=== PATIENT | female | born 1950 | race Caucasian/White ===

== ENCOUNTER → 2017-03-31 | Outpatient (CLI) | payer MEDICARE ==
[~2017-03-31] MED LIST: ADVAIR 100-501 EACH INH; ADVAIR NASAL; ALBUTEROL2.5 MG/0.1 INH; ALEVE220 M1 PO; BACTRIM DS TAB1 EACH PO; CALCIUM 500 +1 EAC5 PO; CALCIUM CITRAT250 MG PO; CALCIUM WITH VIT D PO; CELEBREX 200 M200 M1 PO; CIPRO250 M1 PO; CLONIDINE0.1 PO; COLACE100 MG PO; CYMBALTA30 MG PO; CYMBALTA60 MG PO; ENOXAPARIN30 MG/0.3 SUBQ; FLEXERIL PO; FLOMAX0.4 MG PO; FLONASE 0.05%50 MCG NASAL; HYDROCODON-ACE1 EAC5 PO; HYDROCODONE-AP1 EAC6 PO; HYDROXYCHLOROQ200 M1 PO; IRON PO; KEFLEX500 MG PO; MULTIVITAMIN; MULTIVITAMINS PO; MULTIVITAMINS1 EAC7 PO; NEURONTIN 300300 M1 PO; NEURONTIN600 MG PO; NORCO 10-325 T1 EAC1 PO; NORCO 10-325 T1 EACH PO; NORCO 5-325 TA1 EACH PO; NORCO 7.5-3251 EACH PO; OXYCODONE HCL15 MG PO; PERCOCET 5-3251 EACH PO; PERCOCET 7.5-31 EACH PO; ROXICODONE15 M1 PO; TAMSULOSIN HCL0.4 MG PO; TIZANIDINE HCL4 MG PO; TONIC; TUMERIC; VIT B 12 PO; VITAMIN B-1250 MC2 PO; VITAMIN D3400 UNIT PO; XANAX 0.5 MG0.5 M1 PO; ZANAFLEX4 M1 PO; ZITHROMAX500 MG PO; iron PO; vitamin b12 PO
--- NOTE | 2017-04-02 08:15 | PAINCON ---
[facility] [address] [place] [address] PAIN MANAGEMENT CONSULTATION Name: SIGIFREDO PERAZA Room: [facility] Kaushal#: [id number] Admission: 03/31/17 Attend Phys: Andrew Calabrese Discharge: Date of : 46 Report #: [id number] THIS REPORT FOR: //name// CC: Xochitl Conde The patient is a very pleasant 67-year-old female typically treated for lumbar radiculopathy, axial back pain, SI mediated pain requiring high risk complex medication management. She has a spinal cord stimulator in place for lumbar radicular pain. Last visit 01/27/2017, somewhat tragic visit, the patient's daughter had just passed. She returns to pain clinic today, she is doing reasonably well. 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 She notes the gabapentin and tizanidine caused daytime sedation, hence she tends to take her gabapentin 600 mg 2 tablets at bedtime and tizanidine 1-2 tablets at bedtime. She uses hydrocodone 5/325 one tablet 3-4 times a day, limit 100 tablets for 30 days, clonidine 0.1 at bedtime and Celebrex 200 mg b.i.d. We reviewed the fact that opiate medications are being used to provide analgesia adequate to support activities of daily living, not attempting to achieve a specific pain score on the 0-10 Visual Analog Scale. The current opiate medications are providing sufficient analgesia to allow the patient to participate in activities of daily living. The patient is not exhibiting any aberrant behavior suggestive of drug diversion. The patient is not having any adverse reactions to medications. The patient is not suffering from daytime somnolence or mental acuity changes. The patient is managing opiate-induced constipation with appropriate mluq-sgj-mysijnx agents and dietary considerations. The patient was counseled on concern for caution with operating a motor vehicle while using opiate medications. A physical exam was performed and the patient's functional status was evaluated. All patients with back pain were advised against the bed rest greater than 4 days and were advised to return to normal activities. Pain score assessment was noted and the treatment plan was reviewed with the patient. All current medications, both prescribed and OTC were reviewed and reconciled on the electronic medical record. Tobacco screening was accomplished and smoking cessation was advised when indicated. BMI was noted and diet/exercise modification was recommended for all patients following outside normal parameters. I reviewed with the patient today their responsibilities to safeguard prescription medications, reviewed their responsibility to utilize medications only as prescribed by the physician. They are to seek and receive pain medications only from 1 physician group ( [facility]). They are to use 1 pharmacy and keep the clinic informed if they change pharmacies. Their responsibilities include making followup visits in a timely fashion and to avoid abrupt discontinuation of medication usage. Their responsibilities further include bringing their medications (bott[place] [address] PAIN MANAGEMENT CONSULTATION Name: SIGIFREDO PERAZA Room: [facility] DHARMESH Easley#: [id number] Admission: 03/31/17 Attend Phys: Andrew Calabrese Discharge: Date of : 46 Report #: [id number] pills) to the visit for possible confirmation of pill counts and the patient understands it is their responsibility to submit to random drug screens to ensure both that the medications prescribed are present, and that no other controlled substances are present. All prescriptions provided today were generated electronically. The patient generally has been doing reasonably well with current medication, in fact rates her pain 0 on a VAS at present; however, she does note she has been having some increasing problems with paresthesia in bilateral upper extremities affecting the long, ring, and fifth finger. PHYSICAL EXAMINATION: Today shows a pleasant 67-year-old female, BMI is 23.5 kg/m2. Blood pressure is 135/53, pulse 61, and respirations are 18. Alert and oriented to person, place and time, judged to be a reasonable historian. Cervical range of motion is modestly limited, modestly positive Lhermitte's. Hand grasp is symmetric. Tinel's is negative. Subjective paresthesia in the C7 and 8 distribution. Rises from chair using armrest. Gait is tandem. Lower extremity strength preserved. Diffuse axial back pain. No discrete trigger points noted. ASSESSMENT: Symptomatic lumbar radiculopathy, axial back pain requiring high risk complex medication management by history, new diagnosis of cervical radicular symptoms. RECOMMENDATION: We will seek authorization for cervical epidural injection under fluoroscopy today. Given the patient has a spinal cord stimulator in place, MRI will be contraindicated. If one cervical epidural injection does not the patient's cervical radicular symptoms, I will move forward with a CT myelogram. Discharged in good and stable condition, prescriptions for 2 months given, we will see the patient back in 2 weeks for cervical epidural injection under fluoroscopy unless symptoms resolve. <ELECTRONICALLY SIGNED> By: Conor Conde DO 04/02/17 0815 1325 [id number] Conde DO /nt
== END ==
LOC: M.PC 03-17 01:30
DX: M54.16 Radiculopathy, lumbar region (principal); M54.12 Radiculopathy, cervical region; M54.9 Dorsalgia, unspecified; M53.3 Sacrococcygeal disorders, not elsewhere classified; Z79.899 Other long term (current) drug therapy

== ENCOUNTER → 2017-04-14 | Outpatient (CLI) | payer MEDICARE ==
--- NOTE | 2017-04-16 09:33 | PAINCON ---
[address] [address] PAIN MANAGEMENT CONSULTATION Name: SIGIFREDO PERAZA Room: [facility] Kaushal#: [id number] Admission: 04/14/17 Attend Phys: Andrew Calabrese Discharge: Date of : 46 Report #: [id number] THIS REPORT FOR: //name// CC: Xochitl Conde The patient is a very pleasant 67-year-old female, prior seen in the pain clinic for both lumbar and cervical radicular symptoms. She was last seen in pain clinic on 03/31/2017. We diagnosed symptomatic cervical radiculopathy relatively acute onset and sought authorization for epidural injection under fluoroscopy. This was accomplished. She returns to pain clinic today noting pain continues unabated to neck, right shoulder and arm with paresthesia ongoing in the right arm. We elected to proceed with epidural injection under fluoroscopy today. Continue medication unchanged. Follow up in 4 weeks for reevaluation. ASSESSMENT: Symptomatic cervical radiculopathy. PROCEDURE: Cervical epidural injection under fluoroscopy. PROCEDURE NOTE: After written and informed consent was obtained including risk of dural puncture, spinal cord trauma, paralysis and increased pain, the patient was taken to the fluoroscopy suite and placed in the prone position, with appropriate abdominal bolstering, neck was flexed, palms under the thighs. Skin was prepped with ChloraPrep. Sterile draping was applied. Skin wheal with 1% Xylocaine was raised. A 22-gauge 3-1/2 inch epidural Tuohy needle was placed via a midline approach at the C7-T1 interspace, advanced under biplanar fluoroscopy using continuous loss of resistance. With appropriate loss of resistance at the expected depth on lateral view, the glass loss of resistance syringe was disconnected. A low volume extension tubing was connected to the needle and a 5 mL syringe. Negative aspiration for cerebrospinal fluid or blood was noted. A 1 mL of Omnipaque was injected which showed spread within the epidural space on biplanar fluoroscopy. This was followed with 80 mg of triamcinolone plus 1 mL of 1.5% preservative Xylocaine. Needle was withdrawn to the interspinous ligament, 0.5 mL of Xylocaine was used to flush the needle. The needle was then completely withdrawn. The area was cleansed. Band-Aid was applied. The patient was allowed to move off the procedure table and ambulated to the recovery room, monitored for an appropriate period of time, discharged in good and stable condition. <ELECTRONICALLY SIGNED> By: Conor Conde DO 04/16/17 0933 1321 [id number] Conde DO /riri
== END | disposition home or self-care (01) ==
LOC: M.PC 01:30
DX: M54.12 Radiculopathy, cervical region (principal)

== ENCOUNTER → 2017-05-26 | Outpatient (CLI) | payer MEDICARE ==
--- NOTE | 2017-05-27 10:21 | PAINCON ---
[address] [address] PAIN MANAGEMENT CONSULTATION Name: SIGIFREDO PERAZA Room: [facility] Kaushal#: [id number] Admission: 05/26/17 Attend Phys: Andrew Calabrese Discharge: Date of : 46 Report #: [id number] THIS REPORT FOR: //name// CC: Xochitl Conde DATE OF SERVICE: 05/26/2017 The patient is a 67-year-old female being treated for lumbar radiculopathy, component of cervical radiculopathy. Last seen in pain clinic 04/14/2017. The patient was given a single epidural injection at that time. She returns to pain clinic today noting the injection afforded significant improvement in baseline pain. She has had hydrocodone 5/325 sample for breakthrough pain. She does continue with Celebrex 200 mg 1 a day, gabapentin 600 mg typically 2 at night, but she notes if she takes a little more frequently, pain does improve overall. She has both cervical and lumbar radicular symptoms, though again, the cervical radicular symptoms seemed to be improved. We reviewed the fact that opiate medications are being used to provide analgesia adequate to support activities of daily living, not attempting to achieve a specific pain score on the 0-10 Visual Analog Scale. The current opiate medications are providing sufficient analgesia to allow the patient to participate in activities of daily living. The patient is not exhibiting any aberrant behavior suggestive of drug diversion. The patient is not having any adverse reactions to medications. The patient is not suffering from daytime somnolence or mental acuity changes. The patient is managing opiate-induced constipation with appropriate lxnz-gdr-brbuwey agents and dietary considerations. The patient was counseled on concern for caution with operating a motor vehicle while using opiate medications. A physical exam was performed and the patient's functional status was evaluated. All patients with back pain were advised against the bed rest greater than 4 days and were advised to return to normal activities. Pain score assessment was noted and the treatment plan was reviewed with the patient. All current medications, both prescribed and OTC were reviewed and reconciled on the electronic medical record. Tobacco screening was accomplished and smoking cessation was advised when indicated. BMI was noted and diet/exercise modification was recommended for all patients following outside normal parameters. I reviewed with the patient today their responsibilities to safeguard prescription medications, reviewed their responsibility to utilize medications only as prescribed by the physician. They are to seek and receive pain medications only from 1 physician group ( [facility]). They are to use 1 pharmacy and keep the clinic informed if [place] [address] PAIN MANAGEMENT CONSULTATION Name: SIGIFREDO PERAZA Room: [facility] Kaushal#: [id number] Admission: 05/26/17 Attend Phys: Andrew Calabrese Discharge: Date of : 46 Report #: [id number] responsibilities include making followup visits in a timely fashion and to avoid abrupt discontinuation of medication usage. Their responsibilities further include bringing their medications (bottles from the pharmacy with residual pills) to the visit for possible confirmation of pill counts and the patient understands it is their responsibility to submit to random drug screens to ensure both that the medications prescribed are present, and that no other controlled substances are present. All prescriptions provided today were generated electronically. PHYSICAL EXAMINATION: Shows 67-year-old female, 4-foot 11-inch, 116 pounds, BMI is 19 kilograms per meter squared. Blood pressure 128/53, pulse 51, respirations 16. Subjective pain score is fairly nominal 2/10 today. Near 100% relief following cervical epidural injection 03/31/2017. No pain in her neck. She does have pain in the low back. She notes pain is exacerbated with ambulation and activity. Physical exam notes modestly antalgic gait. Cervical range of motion is full. Upper extremity strength is preserved. Lumbar flexion is limited. Diffuse tenderness across the low back, no discrete trigger points noted. ASSESSMENT: 1. Symptomatic lumbar radiculopathy, history of cervical radiculopathy, chronic complex medication management. 2. Component of acute sinus infection, she is afebrile but does have tenderness over the frontal sinuses. No tenderness over the maxillary sinuses. Positive cervical adenopathy. RECOMMENDATION: 1. Continue hydrocodone 5/325, however, we will write for a 10/325 tablet with directions to take a half a tablet 2-3 times a day, limit 50 tablets for 30 days. This will expose the patient to less acetaminophen and she believes that her cost will be about half compared to 100 of the 5 mg tablets. 2. I have taken the liberty of renewing her prescription. We will see the patient back in 2 months for reevaluation. I told her I will be happy to repeat cervical epidural injection if indicated clinically; however, given the good relief she has had at present, I am hopeful that she will not require further intervention. She certainly does not warrant it at present. Discharged in good and stable condition. Follow up in 2 months for reevaluation. <ELECTRONICALLY SIGNED> By: Conor Conde DO 05/27/17 1021 1240 [id number] Conde DO /nt
== END ==
LOC: M.PC 03:38
DX: M54.16 Radiculopathy, lumbar region (principal); M54.12 Radiculopathy, cervical region; J01.90 Acute sinusitis, unspecified; Z79.899 Other long term (current) drug therapy

== ENCOUNTER → 2017-07-21 | Outpatient (CLI) | payer MEDICARE ==
--- NOTE | 2017-07-22 09:37 | PAINCON ---
[address] [address] PAIN MANAGEMENT CONSULTATION Name: SIGIFREDO PERAZA [id number] Admission: 07/21/17 Attend Phys: Andrew Calabrese Discharge: Date of : 46 Report #: [id number] THIS REPORT FOR: //name// CC: Xochitl Conde DATE OF SERVICE: 07/21/2017 HISTORY OF PRESENT ILLNESS: The patient is a 67-year-old female being treated for lumbar radiculopathy, history of cervical radiculopathy. Last seen on 05/26/2017. Continued hydrocodone 5/325, changed prescription to a hydrocodone 10/325 tablets with directions to take one-half tablet 4 times a day, limit 60 tablets for 30 days. This was done for economic reasons. We talked about an epidural injection if indicated clinically at this visit. She returns to the pain clinic today. She has been having significant pain in the last 4 days. States she has a "cracked tooth" right upper side. She has a right hemifacial pain. Does have a little pharyngeal drainage and subjective stuffiness in the right ear. Does have cervical adenopathy right greater than left. She is tender over both the frontal and maxillary sinuses on the right. Cervical range of motion is modestly limited. She is afebrile, temperature is 98.2, blood pressure 143/107, pulse 50, respirations 16. BMI is 23.3 kilograms per meter squared. Upper extremity strength is diminished, but symmetric. ASSESSMENT: Symptomatic cervical radiculopathy, history of lumbar radiculopathy, chronic pain requiring complex medication management in a patient with an acute dental abscess versus possible sinus infection. RECOMMENDATIONS: I had a long discussion with the patient today about therapeutic options. She tells me she took a pain tablet that had been leftover from her daughter (tragically her daughter from cancer). She took hydromorphone 4 mg tablet. I significantly chastised the patient regarding her responsibility to not take opiates that are not prescribed. I pointed out that 4 mg hydromorphone in opiate naive patient is an extremely high level of narcotic, which could lead to overdose. It is not only dangerous, it is illegal. The patient ultimately understood my consternation. I told her we will continue hydrocodone 5 mg 4 times a day and will follow up in 4 weeks. Unbeknownst to the patient we will get a random drug screen at that time. Given hemifacial pain, frontal sinus tenderness and cervical adenopathy, I did prescribe azithromycin 6 tablets 2 today with directions to take 1 in the subsequent 4 days. While trying to quiet some of the acute right hemifacial pain symptoms, I strongly recommend she follow up with her dentist. Discharged in good and stable condition after moderately prolonged visit. She was seen from 11:15-11:40, greater than 50% of the time [place] [address] PAIN MANAGEMENT CONSULTATION Name: SIGIFREDO PERAZA Room: [facility] Easley#: [id number] Admission: 07/21/17 Attend Phys: Andrew Calabrese Discharge: Date of : 46 Report #: [id number] issues, concern about the use of non-prescribed opiate analgesics. Follow up in 4 weeks for reevaluation, may consider epidural injection if indicated at that time and if sinus/dental abscess infection is resolved. <ELECTRONICALLY SIGNED> By: Conor Conde DO 07/22/17 0937 1446 [id number] Conde DO /nt
== END ==
LOC: M.PC 04:39
DX: M54.12 Radiculopathy, cervical region (principal); G89.29 Other chronic pain; M54.16 Radiculopathy, lumbar region

== ENCOUNTER 2017-07-24 12:38 | Inpatient (IN) | payer MEDICARE ==
[~2017-07-24] VITALS: Ht 149.9 cm; Wt 50.5 kg
[~2017-07-24 12:38] MED LIST changes: -FLOMAX0.4 MG PO; -NORCO 10-325 T1 EAC1 PO
[2017-07-24 12:46] VITALS: BP 114/37
[2017-07-24 13:06] LABS: URINE BILIRUBIN NEGATIVE (Negative); URINE BLOOD NEGATIVE (Negative); URINE CLARITY CLEAR; URINE COLOR YELLOW; URINE GLUCOSE-RANDOM NEGATIVE (Negative); URINE KETONES 1+ (Negative); URINE LEUKOCYTES-REFLEX NEGATIVE (Negative); URINE NITRITE-REFLEX NEGATIVE (Negative); URINE PROTEIN NEGATIVE (Negative); URINE SPECIFIC GRAVITY >= 1.030 (1.005-1.030); URINE UROBILINOGEN 0.2 E.U./dl (0.2-1.0)
[2017-07-24 13:23] LABS: ABSOLUTE EOSINOPHILS 0.1 thou/uL (0.0-0.7); ABSOLUTE LYMPHOCYTES 1.3 thou/uL (0.8-5.3); ABSOLUTE MONOCYTES 1.3 thou/uL (0.0-1.2); ABSOLUTE NEUTROPHILS 6.9 thou/uL (1.6-8.1); BASOPHILS 0.4 %; EOSINOPHILS 0.8 %; HEMATOCRIT 35.7 % (37.0-47.0); HEMOGLOBIN 11.7 gm/dL (12.0-15.0); LYMPHOCYTES 13.5 %; MCH 30.5 pg (26.0-34.0); MCHC 32.9 g/dL (28.0-37.0); MONOCYTES 13.1 %; MPV 10.4 fl. (7.2-11.1); NUCLEATED RBCS 0 /100WBC; PLATELET COUNT* 184 thou/uL (150-400); POLYS 72.2 %; RBC 3.84 mil/uL (4.20-5.00); WBC 9.6 thou/uL (4.0-11.0)
[2017-07-24 13:46] LABS: CALCIUM 9.6 mg/dL (8.5-10.1); CREATININE 0.8 mg/dL (0.6-1.3); POTASSIUM 3.6 mmol/L (3.5-5.1)
[2017-07-24 13:51] LABS: ALBUMIN 3.7 g/dL (3.4-5.0); TOTAL BILIRUBIN 0.7 mg/dL (<0.1-1.0); TOTAL PROTEIN 6.8 g/dL (6.4-8.2)
[2017-07-24 17:55] VITALS: BP 113/53
[2017-07-24 17:57] VITALS: BP 128/59
--- NOTE | 2017-07-24 19:28 | NUR ---
PATIENT ARRIVED FROM ER THIS EVENING. PATIENT SETTLED TO ROOM. HISTORY, ASSESSMENT AND VITALS COMPLETED AND DOCUMENTED. PATIENT HAS COMPLAINTS OF LEFT FLANK PAIN, TREATED ADEQUATELY WITH KETORALAC, ORDERS RECEIVED FROM DR JONES FOR THIS. PATIENT IS UP AD TEENA IN ROOM. STRAINING URINE. PATIENT DENIES ANY NEEDS AT THIS TIME. CALL LIGHT WITHIN REACH. WILL CONTINUE TO MONITOR.
[2017-07-24 19:45] VITALS: BP 113/63
[2017-07-24] MEDS ORDERED: NEURONTIN600 MG PO (20:07)
[2017-07-24] MEDS ORDERED: HYDROCODONE-AP1 EAC6 PO (20:08)
[2017-07-25 00:10] VITALS: BP 73/32
[2017-07-25 01:35] VITALS: BP 112/58
[2017-07-25 03:45] LABS: MCH 30.7 pg (26.0-34.0); MCHC 33.5 g/dL (28.0-37.0); MCV 91.5 fL (80.0-100.0); MPV 10.9 fl. (7.2-11.1); RBC 3.6 mil/uL (4.20-5.00); RDW-CV 13.1 % (10.5-14.5); WBC 7.2 thou/uL (4.0-11.0)
[2017-07-25 03:46] LABS: CALCIUM 8.4 mg/dL (8.5-10.1); CREATININE 0.8 mg/dL (0.6-1.3); MAGNESIUM 1.8 mg/dL (1.8-2.4); POTASSIUM 4.5 mmol/L (3.5-5.1)
--- NOTE | 2017-07-25 05:27 | NUR ---
PATIENT ALERT AND ORIENTED. PHYSICIAN CONTACTED DUE TO LOW BLOOD PRESSURE. ORDERS RECEIVED, RESULTING IN IMPROVED BLOOD PRESSURE. FLUIDS INFUSING PER ORDER. UP INDEPENDENTLY. NPO. STRAINING ALL URINE. PAIN CONTROLLED WITH PO MEDICATION. HOURLY ROUNDS. NURSING WILL CONTINUE TO MONITOR.
[2017-07-25 07:47] VITALS: BP 123/54
[2017-07-25 12:31] VITALS: BP 123/54
[2017-07-25] MEDS ORDERED: FLOMAX0.4 MG PO (12:42)
--- NOTE | 2017-07-25 13:00 | NUR ---
ASSUMED CARE OF PATIENT AFTER MORNING REPORT. ALERT AND ORIENTED X4. ASSESSMENT COMPLETED AND CHARTED. VSS ON ROOM AIR. PATIENT HAD NO COMPLAINTS OF PAIN, NAUSEA OR SOA THIS SHIFT. FLUIDS INFUSED ORDERED. URINE STRAINED ORDERED, SMALL STONELIKE OBJECT NOTED IN STRAINER, POSSIBLY PASSING OF A STONE. PATIENTS DIET PROGRESSED TO REGULAR BY UROLOGY, CLEARED FOR DISCHARGE WITH FOLLOW UP PLANNED IN A FEW WEEKS. PATIENT DISCHARGED AT 1255, ALL PERSONAL BELONGINGS, PRESCRIPTIONS AND DISCHARGE INFORMATION SENT WITH PATIENT UPON DISCHARGE.
[2017-08-18] MEDS ORDERED: NORCO 10-325 T1 EACH PO (11:15)
[2017-08-18] MEDS ORDERED: TIZANIDINE HCL4 MG PO (11:15)
[2017-08-18] MEDS ORDERED: NORCO 10-325 T1 EAC1 PO (11:15)
[2017-10-26] MEDS ORDERED: CELEBREX 200 M200 M1 PO (08:55)
[2017-10-26] MEDS ORDERED: NORCO 10-325 T1 EACH PO (08:55)
[2017-10-26] MEDS ORDERED: CLONIDINE0.1 PO (08:55)
[2017-10-26] MEDS ORDERED: ZITHROMAX500 MG PO (08:55)
[2017-10-26] MEDS ORDERED: TIZANIDINE HCL4 MG PO (08:55)
[2017-10-26] MEDS ORDERED: NORCO 10-325 T1 EAC1 PO (08:55)
[2017-12-21] MEDS ORDERED: NORCO 10-325 T1 EACH PO (08:24)
[2017-12-21] MEDS ORDERED: CLONIDINE0.1 PO (08:24)
[2017-12-21] MEDS ORDERED: CELEBREX 200 M200 M1 PO (08:24)
[2017-12-21] MEDS ORDERED: NORCO 10-325 T1 EAC1 PO (08:24)
[2017-12-21] MEDS ORDERED: ZITHROMAX500 MG PO (08:24)
[2017-12-21] MEDS ORDERED: TIZANIDINE HCL4 MG PO (08:24)
[2018-02-08] MEDS ORDERED: CELEBREX 200 M200 M1 PO ×2 (10:20→10:38)
[2018-02-08] MEDS ORDERED: ZITHROMAX500 MG PO (10:20)
[2018-02-08] MEDS ORDERED: CLONIDINE0.1 PO (10:20)
[2018-02-08] MEDS ORDERED: TIZANIDINE HCL4 MG PO (10:20)
[2018-02-08] MEDS ORDERED: NORCO 10-325 T1 EAC1 PO (10:20)
[2018-02-08] MEDS ORDERED: NORCO 10-325 T1 EACH PO (10:20)
[2018-02-08] MEDS ORDERED: NEURONTIN600 MG PO (10:38)
== END 2017-07-25 12:55 | disposition home health service (06) | DRG 694 ==
LOC: M.ERS 12:38 → M.ORTHSURG 16:40 → M.TBA-ER 16:40 → M.ORTHSURG 17:50
PROVIDERS: Nurse Practitioner Family; ADMIT Family Medicine
DX: N13.2 Hydronephrosis with renal and ureteral calculous obstruction (principal); J44.9 Chronic obstructive pulmonary disease, unspecified; M32.9 Systemic lupus erythematosus, unspecified; Z96.653 Presence of artificial knee joint, bilateral; M79.7 Fibromyalgia; Z79.899 Other long term (current) drug therapy; K80.50 Calculus of bile duct without cholangitis or cholecystitis without obstruction; G89.29 Other chronic pain; M54.5 Low back pain; E86.0 Dehydration; K80.70 Calculus of gallbladder and bile duct without cholecystitis without obstruction; M19.90 Unspecified osteoarthritis, unspecified site; N28.1 Cyst of kidney, acquired; Z87.442 Personal history of urinary calculi; Z90.49 Acquired absence of other specified parts of digestive tract; Z98.42 Cataract extraction status, left eye; Z98.41 Cataract extraction status, right eye; N23 Unspecified renal colic; Z87.891 Personal history of nicotine dependence

== ENCOUNTER → 2017-08-18 | Outpatient (CLI) | payer MEDICARE ==
[~2017-08-18] MED LIST changes: +FLOMAX0.4 MG PO; +NORCO 10-325 T1 EAC1 PO
--- NOTE | 2017-08-19 07:50 | PAINCON ---
[address] [address] PAIN MANAGEMENT CONSULTATION Name: SIGIFREDO PERAZA Room: [facility]#: [id number] Admission: 08/18/17 Attend Phys: Andrew Calabrese Discharge: Date of : 46 Report #: [id number] THIS REPORT FOR: //name// CC: Xochitl Conde DATE OF SERVICE: 08/18/2017 HISTORY OF PRESENT ILLNESS: The patient is a 67-year-old female, prior seen in the pain clinic for symptomatic cervical and lumbar radiculopathy. She has done well with low dose hydrocodone, 5 mg 4 times a day (/2 of [place] 10). She was in the hospital 07/24 through 07/25 for flank pain, diagnosed with renal lithiasis. Incidentally noted choledocholithiasis as well. She has had 3 bouts of renal lithiasis in the past. She was told it was due to low citric acid, she has increased her consumption of reuben and oranges with nominal efficacy. She states her back pain is actually fairly minimal at present. She rates pain a "0.5" on a 0-10 visual analog scale. PHYSICAL EXAMINATION: GENERAL: Shows pleasant 67-year-old female, 4 feet 11 inches, 110 pounds, BMI is 22.4 kilograms per meter squared. VITAL SIGNS: Blood pressure 126/56, pulse is 55, respirations of 16. MUSCULOSKELETAL: Rises from chair easily. Gait is tandem. Really, no discrete trigger points or tenderness noted in the low back. RECOMMENDATIONS: Discussion with the patient today about therapeutic options. She does take tizanidine 4 mg for spasm; she is taking up to 4 times a day as needed. Hydrocodone 10/325 1/2 tablet 4 times a day. She has taken this on a p.r.n. basis as well. Celebrex 200 mg b.i.d. and gabapentin 600 mg 2 tablets at bedtime. Continued unchanged. I have taken the liberty of writing for the tizanidine, hydrocodone today. We will have the patient to follow up simply on an as-needed basis. I did tell the patient that I will be leaving practice at the end of August. I did suggest she follow up with Dr. Xochitl Niño. She may be able to continue her low dose opiate analgesic. If not, hopefully Dr. Niño can refer her to another pain physician in her insurance network. Otherwise, we will have her follow up with Dr. Fred Tuttle at [facility]. Dr. Tuttle is taking over and over my patients, but his schedule is getting quite full and he may have difficulty seeing all of the chronic pain patients here. Today, we did repeat a random drug screen. No aberrant behavior suggestive of drug diversion, simply complying with her opiate [place] [address] PAIN MANAGEMENT CONSULTATION Name: STUSIGIFREDO Room: [facility] DHARMESH Easley#: [id number] Admission: 08/18/17 Attend Phys: Andrew Calabrese Discharge: Date of : 46 Report #: [id number] Thank you for allowing me to participate in the patient's care. <ELECTRONICALLY SIGNED> By: Conor Conde DO 08/19/17 0750 1341 1957[facility]acely Conde DO /nt
== END ==
LOC: M.PC 03:58
DX: M54.16 Radiculopathy, lumbar region (principal); M54.12 Radiculopathy, cervical region; K80.50 Calculus of bile duct without cholangitis or cholecystitis without obstruction; N20.0 Calculus of kidney

== ENCOUNTER → 2017-10-26 | Outpatient (CLI) | payer MEDICARE ==
--- NOTE | 2017-11-12 08:37 | PAINCON ---
[address] [address] PAIN MANAGEMENT CONSULTATION Name: SIGIFREDO PERAZA Room: [facility]ES[facility] Easley#: [id number] Admission: 10/26/17 Attend Phys: Taylor Tuttle MD Discharge: Date of : 46 Report #: [id number] THIS REPORT FOR: //name// CC: Xochitl Tuttle DATE OF SERVICE: 10/26/2017 CHIEF COMPLAINT: Low back and leg pain. HISTORY OF PRESENT ILLNESS: The patient is a 67-year-old female who has been followed in the pain clinic for quite a number of years by Dr. Conor Conde. This is first time seeing the patient. She has a history of low back pain and is being treated with complex medical management using opioid medications. She also has a history of symptomatic cervical radiculopathy. She is doing reasonably well on her current medical regimen of hydrocodone. She does suffer from kidney stones. The patient states that she has been taking care of her who has had a number of strokes. He is totally dependent upon her. Having to do activities of daily living as his caregiver can be somewhat difficult. She feels that with her current medications things are going reasonably well. Does note some worsening of pain and discomfort in the evening hours. She notes exacerbation of her pain with activity, walking, sitting, standing, going from a sitting to a standing position. Lifting and bending. Feels that her medications as well as use of heat can be helpful. She also has a spinal cord stimulator in place. She finds that continues to be beneficial as well. ALLERGIES: No known drug allergies. CURRENT MEDICATIONS: Calcium 250 mg, Celebrex 200 mg b.i.d., vitamin D3 400 units, clonidine 0.1 mg at bedtime, Neurontin 1200 mg at bedtime, hydrocodone 5/325 p.r.n., hydrocodone 10/325 q.i.d. as needed one-half tablet, Plaquenil, rheumatoid arthritis, multivitamins, Flomax 0.4 mg. PAST MEDICAL HISTORY: History of cervical radiculopathy and lumbar radiculopathy, stable at this juncture. IMPRESSION: 1. Lumbar radicular pain status post spinal cord stimulator. 2. Multilevel degenerative disk disease at L3-L4 and L4-L5. 3. Mild neural foraminal narrowing L4-L5. 4. Systemic lupus erythematosus, history. 5. Chronic obstructive pulmonary disease. 6. Depression. 7. Osteoarthritis, status post bilateral [place] [address] PAIN MANAGEMENT CONSULTATION Name: SIGIFREDO PERAZA Room: [facility]#: [id number] Admission: 10/26/17 Attend Phys: Taylor Tuttle MD Discharge: Date of : 46 Report #: [id number] 8. Carlito-en-Y gastric bypass. PAIN CLINIC ASSESSMENT: 1. History of osteoarthritis and rheumatoid arthritis. 2. Height 4 feet 11 inches, weight 107 pounds, BMI is 21.7. 3. Vital Signs: Blood pressure 114/79, heart rate 51, respiratory rate 16, room air saturation is 98%. 4. Pain intensity 0/10. 5. Fall history: The patient has not fallen in the last 3 months. 6. Blood thinner. The patient is not on a blood thinning medication. 7. Hypertension. The patient is not being treated for hypertension. 8. Risk assessment tool. 9. Functional assessment tool. 10. Recreational drug use. The patient denies use of recreational drugs. 11. Opioid therapy greater than 6 weeks. The patient is receiving her medication from one source, the pain clinic. 12. Tobacco: The patient denies use of tobacco. 13. Alcohol: The patient denies use of alcoholic beverages. PHYSICAL EXAMINATION: GENERAL: The patient is a well-developed, well-nourished white female. Appears of stated age. Small in stature. Affect is appropriate. Speech is fluent. HEENT: Normocephalic, atraumatic. Extraocular eye muscles intact. Sclerae nonicteric, good range of motion in her neck. Neck is without JVD, adenopathy, or bruits. HEART: Regular rate, slightly bradycardic, good peripheral pulses. LUNGS: Clear to auscultation. ABDOMEN: Nontender, without organomegaly. EXTREMITIES: Lower extremity muscle strength is judged to be generally 5/5 for the major muscle groups with symmetry, upper muscle strength 5/5 with symmetry. RECOMMENDATIONS: We discussed treatment options with the patient. We will continue with her current medical regimen. A script for Celebrex 200 mg, clonidine, tizanidine, hydrocodone 10/325 have been written. The patient will call us if she has any problem with her medications. As you recall, she has her who is quite dependent upon her. She has had 4 strokes. Has left-sided and weakness. Has bowel and bladder control problems. She continues to faithfully watch over him. States that she will continue to watch over him as long as possible and declines placing him in a residential. We would like to thank you for letting us participate in her care. We hope she continues to improve. <ELECTRONICALLY SIGNED> By: Taylor Tuttle MD 11/12/17 0837 [id number]. Fred Tuttle MD /riri
== END ==
LOC: M.PC 10-21 10:50
DX: M51.16 Intervertebral disc disorders with radiculopathy, lumbar region (principal); M48.061 Spinal stenosis, lumbar region without neurogenic claudication; J44.9 Chronic obstructive pulmonary disease, unspecified; F32.9 Major depressive disorder, single episode, unspecified; Z96.653 Presence of artificial knee joint, bilateral; Z79.899 Other long term (current) drug therapy

== ENCOUNTER → 2017-12-21 | Outpatient (CLI) | payer MEDICARE ==
--- NOTE | 2018-01-10 10:00 | PAINCON ---
[address] [address] PAIN MANAGEMENT CONSULTATION Name: STUSIGIFREDO K Room: [facility] YanetMattySasha.#: [id number] Admission: 12/21/17 Attend Phys: Taylor Tuttle MD Discharge: Date of : 46 Report #: [id number] THIS REPORT FOR: //name// CC: Xochitl Tuttle DATE OF SERVICE: 12/21/2017 PRIMARY CARE PHYSICIAN: Xochitl Niño MD FOLLOWUP COMPLAINT: Low back pain and leg pain. HISTORY OF PRESENT ILLNESS: The patient is a 67-year-old female who has been followed in the Pain Clinic. She has a history of low back pain. She has been followed in the Pain Clinic for a number of years. She has a history of low back pain with complex medical management, treatment of opioid medications. She also has had a history of symptomatic cervical radiculopathy. She finds that her current regimen of hydrocodone is helpful. She has a history of kidney stones. She also has a who has had a number of strokes. She is the sole caregiver. She feels that her medications continue to be helpful. Rates her pain as 4/10 at this juncture. Notes that the pain is worse with changes in weather, walking, sitting, standing, lifting and bending. All of these activities of daily living impact upon her pain conditioning. Rates her pain is about 50% improvement with her current medical regimen. MEDICATIONS: Calcium 200 mg, Celebrex 200 mg b.i.d., vitamin D3 400 units, clonidine 0.1 mg at bedtime, Neurontin 1200 mg at bedtime, hydrocodone 5/325 p.r.n., hydrocodone 10/325 q.i.d. as needed, Plaquenil, multivitamins, Flonase 0.4 mg. PAIN CLINIC ASSESSMENT/PQRS: 1. History of osteoarthritis and rheumatoid arthritis. The patient has had bilateral knee surgeries. 2. Height 4 feet 11 inches, weight 112 pounds, BMI is 22.7. 3. Vital signs: Blood pressure 131/36, heart rate 50, respiratory rate 16, room air saturation 96%, temperature 98.1. 4. Pain intensity 10. 5. Fall risk. The patient has not fallen. She did fall about a month ago. She was walking her three dogs. 6. Blood thinner. The patient is not on a blood thinning medication. 7. Hypertension. The patient is not being treated for hypertension. 8. Opioid medications. The patient is receiving opioid medications through the Pain Clinic. 9. Risk assessment: Low risk associated with using opioid medications. 10. Functional assessment tool. 11. Recreational drug use. The patient denies [place] [address] PAIN MANAGEMENT CONSULTATION Name: SIGIFREDO PERAZA Room: [facility]#: [id number] Admission: 12/21/17 Attend Phys: Taylor Tuttle MD Discharge: Date of : 46 Report #: [id number] 12. Tobacco: The patient has a 25-year smoking history, stopped in 1982. 13. Alcohol use. The patient denies use of alcoholic beverages. PHYSICAL EXAMINATION: GENERAL: The patient is a well-developed, well-nourished white female. Appears her stated age. She is alert and oriented x 3. She is small in stature. Her affect is appropriate. Speech is fluent. HEENT: Normocephalic, atraumatic. Extraocular eye muscles intact. Sclerae nonicteric. Mucous membranes are moist. NECK: Without JVD or adenopathy. HEART: Regular rate. S1, S2, without murmur. Good peripheral pulses. LUNGS: Clear to auscultation without rhonchi or rales. ABDOMEN: Nontender, without organomegaly. Bowel sounds present. EXTREMITIES: Upper extremity muscle strength is judged to be 5/5 for the major muscle groups with symmetry. Lower extremity muscle strength is judged to be 5/5 with symmetry and without clubbing, cyanosis or edema. IMPRESSION: 1. Lumbar radicular pain status post spinal cord stimulator. 2. Multilevel degenerative disk disease at L3-L4 and L4-L5. 3. Mild neural foraminal narrowing at L4-L5. 4. Systemic lupus erythematosus, history. 5. Chronic obstructive pulmonary disease. 6. Depression. 7. Osteoarthritis, status post bilateral total knee arthroplasties. 8. Carlito-en-Y gastric bypass. RECOMMENDATIONS: We discussed treatment options with the patient. We will continue with her current medical regimen. She feels that the medication is working reasonably well. It enables her to perform the activities of daily living, which are quite demanding given that she has a who has had multiple strokes and he is quite dependent on her. He has had 4 strokes in the past. He has left-sided weakness. She declines placing him in a skilled nursing, states that she will continue to give him care as long as possible. A script for her medications have been rewritten. She will call us if she has any concerns. We would like to thank you for letting us participate in her care. We hope she continues to improve. <ELECTRONICALLY SIGNED> By: Taylor Tuttle MD 01/10/18 [id number]. MD ALBERTO Evans
== END ==
LOC: M.PC 04:55
DX: M51.16 Intervertebral disc disorders with radiculopathy, lumbar region (principal); M48.062 Spinal stenosis, lumbar region with neurogenic claudication; M17.0 Bilateral primary osteoarthritis of knee; J44.9 Chronic obstructive pulmonary disease, unspecified; M32.9 Systemic lupus erythematosus, unspecified; F32.9 Major depressive disorder, single episode, unspecified; Z79.899 Other long term (current) drug therapy

== ENCOUNTER → 2018-02-08 | Outpatient (CLI) | payer MEDICARE ==
--- NOTE | 2018-02-09 15:35 | PAINCON ---
[facility] [address] [place] [address] PAIN MANAGEMENT CONSULTATION Name: STUSIGIFREDO CHAMBERS Room: [facility] YanetCelestine.#: [id number] Admission: 02/08/18 Attend Phys: Taylor Tuttle MD Discharge: Date of : 46 Report #: [id number] THIS REPORT FOR: //name// CC: Xochitl Tuttle DATE OF SERVICE: 02/08/2018 PRIMARY CARE PHYSICIAN: Xochitl Niño M.D. FOLLOWUP COMPLAINT: Here for medication renewal. FOLLOWUP HISTORY: The patient is a 67-year-old female who has been followed in the pain clinic. She has a history of low back pain. She is followed in the pain clinic for many years. Has a history of complex medical management to help control her pain. She has symptomatic cervical radiculopathy. She finds that her medications continue to be helpful. She has a history of kidney stones. She continues to take care of her who has had a number of strokes. Feels that her medications enable her to be strong enough to take care of him and herself. Notes that the pain sometimes is worsened as a result of the weather change. The weather this morning was about 28 degrees. She has noted some increased pain and discomfort. Notes the pain is worse with walking, sitting, standing, lifting and bending. All of these daily activities impact upon her pain. Rates her pain is 50% improved with her use of her medications. Feels that her pain is 2/10 today. She is happy that her has bladder cancer tumor, which seems to be improving. Finds that if she takes a nap for about a half an hour in the midday, that her pain is helped as well. ALLERGIES: No known drug allergies. CURRENT MEDICATIONS: Calcium 200 mg, Celebrex 200 mg b.i.d., vitamin D 400 units, clonidine 0.1 mg at bedtime, Neurontin 1200 mg at bedtime, hydrocodone 5/325 p.r.n., hydrocodone 10/325 one p.o. q.i.d. as needed, Plaquenil, multivitamins, Flonase 0.4 mg. PAIN CLINIC ASSESSMENT AND PQRS: 1. The patient has a history of osteoarthritis and rheumatoid arthritis. The patient has had bilateral knee surgeries. 2. Height 4 feet 11 inches, weight 113 pounds, BMI is 22.7. 3. Vital Signs: Blood pressure 129/50, heart rate 51, respiratory rate 16, room air saturation 96%, temperature 98.0. Pain intensity 2/10 with use of her stimulator. IMPRESSION: 1. Fall risk. The patient has not fallen in the last 3 [place] [address] PAIN MANAGEMENT CONSULTATION Name: SIGIFREDO PERAZA Room: [facility]#: [id number] Admission: 02/08/18 Attend Phys: Taylor Tuttle MD Discharge: Date of : 46 Report #: [id number] her dogs' activity. She has almost tripped as a result of their activity. 2. Blood thinner. The patient is not on a blood thinning medication. 3. Hypertension. The patient has not been treated for hypertension. 4. Opioid therapy. The patient is receiving medications from one source, the pain clinic. 5. Risk assessment. Low for opioid use. 6. Functional assessment tool. 7. Recreational drug use. The patient denies use of recreational drugs. 8. Tobacco: The patient smoke 25 years ago, stopped in 1982. 9. Alcohol: The patient denies use of alcoholic beverages. PHYSICAL EXAMINATION: GENERAL: The patient is a well-developed, well-nourished, white female. Appears her stated age. She is alert and oriented x 3. Her affect is appropriate. Speech is fluent. She is short in stature. HEENT: Normocephalic, atraumatic. Extraocular eye muscles intact. Sclerae nonicteric. Mucous membranes are moist. NECK: Without adenopathy or JVD. HEART: Regular rate. S1, S2, without murmurs. Good peripheral pulses. LUNGS: Clear to auscultation without rhonchi or rales. ABDOMEN: Nontender, without organomegaly. Bowel sounds present. EXTREMITIES: Upper extremity muscle straight judged to be 5/5 for the major muscle groups. Lower extremity muscle strength is judged to be 5/5 with symmetry without clubbing, cyanosis, or edema. IMPRESSION: 1. Lumbar radiculopathy, status post spinal cord stimulator. 2. Multivitamins level degenerative disk disease at L3-L4 and L4-L5. 3. Mild neural foraminal narrowing, L4-L5. 4. Systemic lupus erythematosus. 5. Chronic obstructive pulmonary disease. 6. Depression. 7. Osteoarthritis, status post bilateral total knee arthroplasties. 8. Carlito-en-Y gastric bypass. RECOMMENDATIONS: We discussed treatment options with the patient. At this juncture, she feels that her medications are working reasonably well. She would like to have the medications continued. She has had no complications. She continues to take care of her . Finds that these medications enable her to do this. She will call us if she has any concerns. [address] [place] [address] PAIN MANAGEMENT CONSULTATION Name: SIGIFREDO PERAZA Room: [facility]#: [id number] Admission: 02/08/18 Attend Phys: Taylor Tuttle MD Discharge: Date of : 46 Report #: [id number] We would like to thank you for letting us participate in her care. We hope she continues to improve. <ELECTRONICALLY SIGNED> By: Taylor Tuttle MD 02/09/18 1535 [id number]. Fred Tuttle MD /PMT
== END ==
LOC: M.PC 04:37
DX: M51.16 Intervertebral disc disorders with radiculopathy, lumbar region (principal); M48.062 Spinal stenosis, lumbar region with neurogenic claudication; M17.0 Bilateral primary osteoarthritis of knee; J44.9 Chronic obstructive pulmonary disease, unspecified; F32.9 Major depressive disorder, single episode, unspecified; M32.9 Systemic lupus erythematosus, unspecified; Z98.84 Bariatric surgery status; Z96.653 Presence of artificial knee joint, bilateral; Z79.899 Other long term (current) drug therapy

== ENCOUNTER → 2018-04-05 | Outpatient (CLI) | payer MEDICARE ==
[~2018-04-05] MED LIST changes: +BIOTIN1 MG PO
--- NOTE | ~2018-04-05 | PAINCON ---
[address] [address] PAIN MANAGEMENT CONSULTATION Name: STUSIGIFREDO CHAMBERS [facility] [id number] Admission: 04/05/18 Attend Phys: Taylor Tuttle MD Discharge: Date of : 46 Report #: [id number] THIS REPORT FOR: //name// CC: Xochitl Tuttle DATE OF SERVICE: 04/05/2018 CHIEF COMPLAINT: "I have had kidney stones and it feels like I might be passing one." HISTORY: The patient is a 68-year-old female who has been followed in the pain clinic because of chronic pain. She has been taking care of her . She has complex medical management history. She has a history of renal stones. Feels like she might be passing 1 at this juncture. She has been unable to sleep or get comfortable with the last day or so. She continues to care for her . He has had a number of strokes. She is experiencing some pain that radiates down her low back as well as some pain in her legs. She states she almost went to the Emergency Room last night. She notes increased pain with activity, cold temperature, walking, sitting, standing, lifting and bending. Her big concern is that if she goes to the hospital. She has no one there to care for her . Her has bladder cancer. ALLERGIES: No known drug allergies. CURRENT MEDICATIONS: Calcium 200 mg, Celebrex 200 mg b.i.d., vitamin D 400 mg, clonidine 0.1 mg at bedtime, Neurontin 1200 mg at bedtime, hydrocodone 5/325, hydrocodone 10/325 q.i.d. as needed, Plaquenil, multivitamin, Flonase 0.4 mg. PAIN CLINIC ASSESSMENT AND PQRS: 1. The patient has a history of osteoarthritis and rheumatoid arthritis. She has had bilateral knee surgeries. 2. Height 4 feet 11 inches, weight 116 pounds, BMI is 23.5. 3. Vital signs: Blood pressure 121/63, heart rate 57, respiratory rate 16, room air saturation 98%, temperature 98.8. 4. Pain intensity 6-7/10. 5. Fall history: The patient has not fallen since we saw her last. 6. Blood thinner. The patient is not on a blood thinning medication. 7. Hypertension. The patient has not been treated for hypertension. 8. Opioid therapy. The patient is receiving medications from one source, the pain clinic. 9. Risk assessment, low for opioid use. 10. Functional assessment tool. 11. Recreational drug use. The patient denies use of recreational drugs. 12. Tobacco: The patient smoked 25 years ago, stopped in 1982. 13. Alcohol: The patient [place] [address] PAIN MANAGEMENT CONSULTATION Name: SIGIFREDO PERAZA Room: [facility]#: [id number] Admission: 04/05/18 Attend Phys: Taylor Tuttle MD Discharge: Date of : 46 Report #: [id number] PHYSICAL EXAMINATION: GENERAL: The patient is a well-developed, well-nourished white female. Appears her stated age. She is alert and oriented. She does appear uncomfortable today. Speech is fluent. She complains of generalized pain in her low back area. Pain that similar to what she has experienced in the past when she has had a kidney stone. HEENT: Normocephalic, atraumatic. Extraocular eye muscles intact. Sclerae nonicteric. Mucous membranes are moist. NECK: Without adenopathy or JVD. HEART: Heart rate normal, S1, S2. LUNGS: Clear to auscultation without rhonchi. ABDOMEN: The patient complains of some pain in the pelvic area. Complains of pain in the back area as well near the kidneys. EXTREMITIES: Upper extremity muscle strength is judged to be 5-/5 for the major muscle groups. Lower extremities 5-/5 for the major muscle groups without clubbing, cyanosis or edema. IMPRESSION: 1. History of lumbar radiculopathy status post spinal cord stimulator. 2. Increased pain and discomfort in the low back and down his legs. The patient feels she may have a kidney stone. 3. History of neural foramen narrowing at L4-L5. 4. Systemic lupus erythematosus. 5. Chronic obstructive pulmonary disease. 6. Depression. 7. Osteoarthritis, status post bilateral total knee arthroplasties. 8. Carlito-en-Y gastric bypass. RECOMMENDATIONS: We discussed treatment option with the patient. She feels like she may have a problem with another kidney stone. She has been quite uncomfortable. She has noted some febrile episodes. I recommend this patient go to the Emergency Room. May need to get the x-ray to see whether or not she has a stone in the kidney. She had had some problem with obstructive uropathy with some increased swelling and fluid retention in her kidneys. We would recommend that she follow up in this ____. We explained that if she did have some obstruction of her kidney, possibility of urine could get infected septic and the patient could have a really severe problem thereafter. States that she would consider going over to the Emergency Room. A script for her medications have been written. We would like to thank you for letting us participate in her care. We hope she continues to improve. By: [id number]. Fred Tuttle MD /PMT
== END ==
LOC: M.PC 09:54
DX: M54.16 Radiculopathy, lumbar region (principal); M48.061 Spinal stenosis, lumbar region without neurogenic claudication; M32.9 Systemic lupus erythematosus, unspecified; J44.9 Chronic obstructive pulmonary disease, unspecified; F32.9 Major depressive disorder, single episode, unspecified; M19.90 Unspecified osteoarthritis, unspecified site; Z96.653 Presence of artificial knee joint, bilateral; Z98.84 Bariatric surgery status